=== PATIENT | female | born 1990 | race Caucasian/White ===

== ENCOUNTER 2016-04-02 12:11 | Emergency (ER) | payer SELFPAY ==
[2016-04-02 13:14] LABS: #Basophils 0.1 thou/uL (0.0-0.2); #Eosinphils 0.1 thou/uL (0.0-0.7); #Lymphocytes 2.1 thou/uL (1.20-3.40); #Monocytes 0.5 thou/uL (0.11-0.59); #Neutrophils 2.7 thou/uL (1.40-6.50); %Basophils 1.8 % (0.0-1.0); %Eosinophils 2.6 % (0.0-10.0); %Lymphocytes 37.7 % (21.0-51.0); %Monocytes 9.7 % (0.0-10.0); Hematocrit 43.3 % (36.0-47.0); Mean Platelet Volume 6.3 fL (7.4-10.4); Red Blood Cell (RBC) Count 5.13 mill/uL (4.20-5.40); White Blood Cell (WBC) Count 5.6 thou/uL (4.8-10.8)
--- NOTE | 2016-04-02 13:16 | RAD ---
PORTABLE CHEST: Date: 04/02/16 HISTORY: Chest pain. FINDINGS: Lungs are clear. Heart and mediastinum appear normal. IMPRESSION: No acute chest finding. POS: [facility]
[2016-04-02 13:32] LABS: Troponin I Less than 0.010 ng/mL (< 0.028)
[2016-04-02 13:33] LABS: ALT (SGPT) 11 U/L (0-55); AST (SGOT) 13 U/L (5-34); Alkaline Phosphatase 57 U/L (40-150); Anion Gap 14 mmol/L (10-20); BUN (Urea Nitrogen) 9 mg/dL (7.0-18.7); Bilirubin, Total 0.6 mg/dL (0.2-1.2); CK (CPK) 61 U/L (29-168); Calc. Creatinine Clearance 0 mL/min (70-130); Calcium 8.8 mg/dL (7.8-10.44); Carbon Dioxide 24 mmol/L (22-29); Chloride 108 mmol/L (98-107); Estimated GFR-MDRD 69; Globulin 2.7 g/dL (2.4-3.5); Protein, Total 6.7 g/dL (6.0-8.3)
--- NOTE | 2016-04-02 13:47 | ERRECORD ---
[facility] EMERGENCY RECORD HPI PALPITATIONS (12:41 JL) CHIEF COMPLAINT: Patient presents for evaluation of palpitations, Patient presents for evaluation of weakness, Patient presents for evaluation of Pt with a long history of anxiety but usually intermittent episodes. Now with 1-2 weeks of constant chest 'congestion or pressure' and intermittent SOB. Also with intermittent but worsening episodes of 'my chest feels funny' and 'I can feel my heart beating very fast in different parts of my chest'. Associated with trembling and 'weak all over'. Dry mouth constantly. Pt with increased stress in her life including family illness, family stress, money stress and work stress. HISTORIAN: History provided by patient. LOCATION: Symptoms are generalized. QUALITY: Pain is dull in nature. TIME COURSE: Patient unable to describe onset of symptoms, Symptoms are worsening, pressure is constant. ASSOCIATED WITH: Associated with anxiety, Associated with chest pain, intermittent, No associated chills, Associated with dizziness, intermittent, Associated with headache, intermittent, Associated with shortness of breath, intermittent, Associated with stress. EXACERBATED BY: Patient's condition exacerbated by stress. RELIEVED BY: Patient's condition relieved by nothing. ROS (12:45 JL) CONSTITUTIONAL: Historian denies chills, denies fever. EYES: Historian denies eye pain, denies eye redness, denies eye discharge. ENT: Historian denies rhinorrhea, denies sore throat. dry mouth. CARDIOVASCULAR: Historian reports chest pain, substernal, Historian reports palpitations. RESPIRATORY: Historian denies cough, reports shortness of breath, denies sputum. GI: Historian denies abdominal pain, denies diarrhea. chronic daily nausea and vomiting since her gastric sleeve years ago, unchanged. GENITOURINARY FEMALE: Historian denies dysuria, denies frequency, denies hematuria. MUSCULOSKELETAL: Historian denies back pain. NEUROLOGIC: Historian reports dizziness, reports headache, denies paralysis, denies paresthesias, denies sensory changes. comes and goes. PSYCHIATRIC: Historian reports anxiety. PAST MEDICAL HISTORY MEDICAL HISTORY: Past medical history includes gastrointestinal disease, gastroesophageal reflux &a-1R&a+25V*p+0X*b8685R*c202B*c15G*c2P*p-0X&a-25V&a+1R Name: Rosalie Zuñiga: 1990 F26 MedRec: [id number] AcctNum: [id number] Prepared: SatApr 02, 2016 13:56 by Interface Page [address] [facility] EMERGENCY RECORD disease, Past medical history includes gynecologic history, polycystic ovary disease. (12:24 MSPE) FEMALE SURGICAL HISTORY: gastric sleeve. (12:24 MSPE) PSYCHIATRIC HISTORY: Psychiatric history includes, anxiety. (12:24 MSPE) SOCIAL HISTORY: Patient drinks socially, rarely, Patient denies drug use, Patient has no smoking history. (12:24 MSPE) NOTES: Nursing records reviewed, Agree with nursing records. (12:47 JLOY) KNOWN ALLERGIES No Known Drug Allergies CURRENT MEDICATIONS (12:22 MSPE) None VITAL SIGNS VITAL SIGNS: BP: 141/83, Pulse: 95, Resp: 20, Temp: 98.1 (Oral), Pain: 5, O2 sat: 100 on Room Air, Time: 04/02/2016 12:20. (12:20 MSPE) BP: 120/58, Pulse: 86, Resp: 13, O2 sat: 99 on RA, Time: 04/02/2016 13:00. (13:00 MSPE) BP: 124/64, Pulse: 75, Resp: 13, O2 sat: 99 on Room Air, Time: 04/02/2016 13:30. (13:30 MSPE) PHYSICAL EXAM (12:46 JLOY) CONSTITUTIONAL: Vital signs reviewed, Patient appears non toxic, Patient alert and oriented to person, place and time. EYES: Eye exam included findings of eyelids normal to inspection, Pupils equally round and reactive to light, Conjunctiva normal. ENT: Pharynx exam normal, Uvula exam normal, Tonsil exam normal, Mouth exam normal, mucous membranes moist. NECK: Neck exam included findings of normal range of motion, Trachea midline. RESPIRATORY CHEST: Respiratory exam included findings of no respiratory distress, Breath sounds clear, No wheezing, No rales, No rhonchi, Chest exam included findings of chest movement symmetrical. CARDIOVASCULAR: Cardiovascular exam included findings of heart rate regular rate and rhythm, Heart sounds normal. ABDOMEN FEMALE: Abdominal exam included findings of abdomen nontender, Bowel sounds normal. BACK: Back exam included findings of normal inspection. UPPER EXTREMITY: Upper extremity exam included findings of inspection normal. LOWER EXTREMITY: Lower extremity exam included findings of inspection normal, no edema, no calf tenderness. NEURO: [place] coma scale 15, Neuro exam findings include patient oriented to person, place and time, Speech normal. SKIN: Skin exam included findings of skin warm, dry, and normal in color, no rash. PSYCHIATRIC: Affect, anxious. &a-1R&a+25V*p+0X*j4527S*c202B*c15G*c2P*p-0X&a-25V&a+1R Name: Rosalie Zuñiga : 1990 F26 MedRec: [id number] AcctNum: [id number] Prepared: SatApr 02, 2016 13:56 by Interface Page [address] [facility] EMERGENCY RECORD PROBLEM LIST No recorded problems DIAGNOSIS (13:40 AMARA) FINAL: PRIMARY: Anxiety. PRESCRIPTION No recorded prescriptions DISPOSITION PATIENT: Disposition Type: Discharge, Disposition: *Discharge Home. (13:40 AMARA) Patient left the department. (13:50 MSPE) Silverman: AMARA=MD David, Jovanny MSPE=MARCE Pelletier, Tracey &a-1R&a+25V*p+0X*[id number]*c202B*c15G*c2P*p-0X&a-25V&a+1R Name: Rosalie Zuñiga : 1990 F26 MedRec: [id number] AcctNum: [id number] Prepared: SatApr 02, 2016 13:56 by Interface Page 3 of 3 pMD MTDD
--- NOTE | 2016-04-02 13:51 | PICIS ---
[facility] EMERGENCY RECORD TRIAGE (SatApr 02, 2016 12:22 MSPE) TRIAGE NOTES: "heart feels weird"; palpitations,HUMPHREY, feels weak; onset one week ago. "getting worse". (SatApr 02, 2016 12:22 MSPE) PATIENT: NAME: Rosalie Zuñiga, AGE: 26, GENDER: female, : Sat 1990, TIME OF GREET: SatApr 02, 2016 12:13, PREFERRED LANGUAGE: Guyanese, ETHNICITY: Not or , ECODE BILLING MAP: [facility] ER, SSN: [id number], Zip Code: [address], KG WEIGHT: 106.59, PHONE: , , , PERSON ID: [id number], PCP: none. (SatApr 02, 2016 12:22 MSPE) COMPLAINT: DIFFICULTY BREATHING/CHEST PAIN/RAPID HEARTBEAT. (SatApr 02, 2016 12:22 MSPE) ADMISSION: URGENCY: 3 Urgent, ADMISSION SOURCE: Home, TRANSPORT: CAR, BED: ER -04. (SatApr 02, 2016 12:22 MSPE) IMMUNIZATIONS: Flu vaccine not up to date, Tetanus immunization up to date, Pneumococcal vaccine not up to date. (12:24 MSPE) TRIAGE SCREENING: Patient denies suicidal ideation, Patient denies presence of domestic violence. (12:24 MSPE) LMP: Last menstrual period: 03/19/2016. (12:24 MSPE) TREATMENTS IN PROGRESS: Treatments given Prehospital: none. (12:24 MSPE) PROVIDERS: TRIAGE NURSE: Tracey Pelletier RN. (SatApr 02, 2016 12:22 MSPE) VITAL SIGNS: BP 141/83, Pulse 95, Resp 20, Temp 98.1, (Oral), Pain 5, O2 Sat 100, on Room Air, Time 04/02/2016 12:20. (12:20 MSPE) PREVIOUS VISIT ALLERGIES: No Known Drug Allergies. (SatApr 02, 2016 12:22 MSPE) No Known Drug Allergies. (12:24 MSPE) KNOWN ALLERGIES No Known Drug Allergies CURRENT MEDICATIONS (12:22 MSPE) None VITAL SIGNS VITAL SIGNS: BP: 141/83, Pulse: 95, Resp: 20, Temp: 98.1 (Oral), Pain: 5, O2 sat: 100 on Room Air, Time: 04/02/2016 12:20. (12:20 MSPE) BP: 120/58, Pulse: 86, Resp: 13, O2 sat: 99 on RA, Time: 04/02/2016 13:00. (13:00 MSPE) BP: 124/64, Pulse: 75, Resp: 13, O2 sat: 99 on Room Air, Time: 04/02/2016 13:30. (13:30 MSPE) NURSING ASSESSMENT: RESPIRATORY /CHEST (12:33 MSPE) CONSTITUTIONAL: Patient arrives ambulatory, Gait steady, History obtained from patient, Patient appears, anxious, Patient cooperative, Patient alert, Oriented to person, place and time, Skin warm, Skin dry, Skin normal in color. &a-1R&a+25V*p+0X*i7984I*c202B*c15G*c2P*p-0X&a-25V&a+1R Name: Rosalie Zuñiga : 1990 F26 MedRec: [id number] AcctNum: [id number] Prepared: SatApr 02, 2016 14:02 by Interface Page 1 of 7 pMD [facility] EMERGENCY RECORD PAIN: pressure pain, stabbing pain, upper chest, pt also c/o HUMPHREY. RESPIRATORY/CHEST: Breath sounds clear, Respiratory assessment findings include respiratory effort easy, Respirations regular, Conversing normally, Notes: sts chest feels congested; denies cough or fever. ENT: Associated with headache, Notes: denies nasal congestion. Sts mouth feels dry. NOTES: Notes: Pt reports having hx of anxiety; reports "having a lot going on", but has never had pain in her chest before today. Placed on ramp agent, BP and pulse ox. Monitor shows NSR. NURSING PROCEDURE: DISCHARGE NOTE (13:48 MSPE) DISCHARGE: Patient discharged to home, ambulating without assistance, Summary of Care printed/ provided, Discharge instructions given to patient, Simple or moderate discharge teaching performed, Above person(s) verbalized understanding of discharge instructions and follow-up care, Patient treated and evaluated by physician. BELONGINGS: Belongings remain with patient. NURSING PROCEDURE: EKG CHART (12:42 MSPE) EKG: EKG indicated for complaint of palpitations, 12 lead EKG performed on the left chest. FOLLOW-UP: After procedure, EKG for interpretation given to Dr. Hernandez. NURSING PROCEDURE: IV IV SITE 1: IV therapy indicated for hydration, IV therapy indicated for medication administration, IV established, to the left antecubital, using a 20 gauge catheter, in one attempt, IV site prepped with Chloraprep, Saline lock established, Flushed with normal saline (mls): 10, Labs drawn at time of placement, labeled in the presence of the patient and sent to lab. (12:59 MSPE) FOLLOW-UP SITE 1: After procedure, 2x2 dressing applied, IV discontinued, due to patient being discharged, catheter intact. (13:45 MSPE) NURSING PROCEDURE: NURSE NOTES NURSES NOTES: Patient in no apparent distress, Pillow given to patient, Ice chips given to patient. (13:00 MSPE) Patient is improving, Patient in no apparent distress, Patient states decreased pain, Patient resting quietly, Patient is awaiting disposition. (13:40 MSPE) VITAL SIGNS: BP: 120, / 58, Pulse: 86, Resp: 13, O2 sat: 99, on: RA. (13:00 MSPE) ORDER DETAILS Order Name: [facility], Status: Done, Time: 12:36 04/02/2016, &a-1R&a+25V*p+0X*h8054W*c202B*c15G*c2P*p-0X&a-25V&a+1R Name: Rosalie Zuñiga : 1990 F26 MedRec: [id number] AcctNum: [id number] Prepared: SatApr 02, 2016 14:02 by Interface Page 2 of 7 D [facility] EMERGENCY RECORD User: CATY, - Ordered for: MD Hernandez Joshua, - Entered by: MARCE Pelletier Marilyn - SatApr 02, 2016 12:36, - Quantity: 1, Order Name: Cardiac Profile w/CKMB & Troponin - I, Status: Active, Time: 12:37 04/02/2016, User: AMARA, - Ordered for: MD Hernandez Joshua, - Entered by: MD Hernandez Joshua - Mon Apr 02, 2016 12:37, - Quantity: 1, Order Name: CBC with Differential, Status: Active, Time: 12:37 04/02/2016, User: AMARA, - Ordered for: MD Hernandez Joshua, - Entered by: MD Hernandez Joshua - Mon Apr 02, 2016 12:37, - Quantity: 1, Order Name: CK (CPK), Status: Active, Time: 12:37 04/02/2016, User: AMARA, - Ordered for: MD Hernandez Joshua, - Entered by: MD Hernandez Joshua - Mon Apr 02, 2016 12:37, - Quantity: 1, Order Name: Comprehensive Metabolic Panel, Status: Active, Time: 12:37 04/02/2016, User: AMARA, - Ordered for: MD Hernandez Joshua, - Entered by: MD Hernandez Joshua - Mon Apr 02, 2016 12:37, - Quantity: 1, Order Name: EKG 12 Lead in Emergency Room, Status: Active, Time: 12:37 04/02/2016, User: AMARA, - Ordered for: MD Hernandez Joshua, - Entered by: MD Hernandez Joshua - Edmundo Apr 02, 2016 12:37, - Quantity: 1, Order Name: ERRT Pulse Oximeter ER, Status: Active, Time: 12:36 04/02/2016, User: CATY, - Ordered for: MD Hernandez Joshua, - Entered by: MARCE Pelletier [facility] Edmundo Apr 02, 2016 12:36, - Quantity: 1, Order Name: XR Chest 1 View Portable, Status: Active, Time: 12:37 04/02/2016, User: AMARA, - Ordered for: MD Hernandez Joshua, - Entered by: MD Hernandez Joshua - Mon Apr 02, 2016 12:37, - Quantity: 1. HPI PALPITATIONS (12:41 JLOY) CHIEF COMPLAINT: Patient presents for evaluation of palpitations, Patient presents for evaluation of weakness, Patient presents for evaluation of Pt with a long history of anxiety but usually intermittent episodes. Now with 1-2 weeks of constant chest 'congestion or pressure' and intermittent SOB. Also with intermittent but worsening episodes of 'my chest feels funny' and 'I can feel my heart beating very fast in different parts of my chest'. Associated with trembling and 'weak all over'. Dry mouth constantly. Pt with increased stress in her life including &a-1R&a+25V*p+0X*e2204K*c202B*c15G*c2P*p-0X&a-25V&a+1R Name: Rosalie Zuñiga : 1990 F26 MedRec: [id number] AcctNum: [id number] Prepared: SatApr 02, 2016 14:02 by Interface Page 3 of 7 pMD [facility] EMERGENCY RECORD family illness, family stress, money stress and work stress. HISTORIAN: History provided by patient. LOCATION: Symptoms are generalized. QUALITY: Pain is dull in nature. TIME COURSE: Patient unable to describe onset of symptoms, Symptoms are worsening, pressure is constant. ASSOCIATED WITH: Associated with anxiety, Associated with chest pain, intermittent, No associated chills, Associated with dizziness, intermittent, Associated with headache, intermittent, Associated with shortness of breath, intermittent, Associated with stress. EXACERBATED BY: Patient's condition exacerbated by stress. RELIEVED BY: Patient's condition relieved by nothing. ROS (12:45 JLOY) CONSTITUTIONAL: Historian denies chills, denies fever. EYES: Historian denies eye pain, denies eye redness, denies eye discharge. ENT: Historian denies rhinorrhea, denies sore throat. dry mouth. CARDIOVASCULAR: Historian reports chest pain, substernal, Historian reports palpitations. RESPIRATORY: Historian denies cough, reports shortness of breath, denies sputum. GI: Historian denies abdominal pain, denies diarrhea. chronic daily nausea and vomiting since her gastric sleeve years ago, unchanged. GENITOURINARY FEMALE: Historian denies dysuria, denies frequency, denies hematuria. MUSCULOSKELETAL: Historian denies back pain. NEUROLOGIC: Historian reports dizziness, reports headache, denies paralysis, denies paresthesias, denies sensory changes. comes and goes. PSYCHIATRIC: Historian reports anxiety. PAST MEDICAL HISTORY MEDICAL HISTORY: Past medical history includes gastrointestinal disease, gastroesophageal reflux disease, Past medical history includes gynecologic history, polycystic ovary disease. (12:24 MSPE) FEMALE SURGICAL HISTORY: gastric sleeve. (12:24 MSPE) PSYCHIATRIC HISTORY: Psychiatric history includes, anxiety. (12:24 MSPE) SOCIAL HISTORY: Patient drinks socially, rarely, Patient denies drug use, Patient has no smoking history. (12:24 MSPE) NOTES: Nursing records reviewed, Agree with nursing records. (12:47 JLOY) &a-1R&a+25V*p+0X*a3367W*c202B*c15G*c2P*p-0X&a-25V&a+1R Name: Rosalie Zuñiga : 1990 F26 MedRec: [id number] AcctNum: [id number] Prepared: SatApr 02, 2016 14:02 by Interface Page 4 of 7 pMD [facility] EMERGENCY RECORD PHYSICAL EXAM (12:46 JLOY) CONSTITUTIONAL: Vital signs reviewed, Patient appears non toxic, Patient alert and oriented to person, place and time. EYES: Eye exam included findings of eyelids normal to inspection, Pupils equally round and reactive to light, Conjunctiva normal. ENT: Pharynx exam normal, Uvula exam normal, Tonsil exam normal, Mouth exam normal, mucous membranes moist. NECK: Neck exam included findings of normal range of motion, Trachea midline. RESPIRATORY CHEST: Respiratory exam included findings of no respiratory distress, Breath sounds clear, No wheezing, No rales, No rhonchi, Chest exam included findings of chest movement symmetrical. CARDIOVASCULAR: Cardiovascular exam included findings of heart rate regular rate and rhythm, Heart sounds normal. ABDOMEN FEMALE: Abdominal exam included findings of abdomen nontender, Bowel sounds normal. BACK: Back exam included findings of normal inspection. UPPER EXTREMITY: Upper extremity exam included findings of inspection normal. LOWER EXTREMITY: Lower extremity exam included findings of inspection normal, no edema, no calf tenderness. NEURO: [place] coma scale 15, Neuro exam findings include patient oriented to person, place and time, Speech normal. SKIN: Skin exam included findings of skin warm, dry, and normal in color, no rash. PSYCHIATRIC: Affect, anxious. EVENTS TRANSFER: Triage to Emergency Emergency Room -04. (SatApr 02, 2016 12:22 MSPE) Removed from Emergency Emergency Room -04. (13:50 MSPE) PROBLEM LIST No recorded problems DIAGNOSIS (13:40 JLOY) FINAL: PRIMARY: Anxiety. DISPOSITION PATIENT: Disposition Type: Discharge, Disposition: *Discharge Home. (13:40 JLOY) Patient left the department. (13:50 MSPE) INSTRUCTION (13:40 JLOY) DISCHARGE: ANXIETY REACTION. FOLLOWUP: Follow up with Primary Care Physician in 7-10 days. PRESCRIPTION No recorded prescriptions &a-1R&a+25V*p+0X*i7023X*c202B*c15G*c2P*p-0X&a-25V&a+1R Name: Rosalie Zuñiga : 1990 F26 MedRec: [id number] AcctNum: [id number] Prepared: SatApr 02, 2016 14:02 by Interface Page 5 of 7 pMD [facility] EMERGENCY RECORD IMAGING *EKG: Image captured from scanner. (13:21 MSPE) *DISCHARGE INSTRUCTIONS RECEIPT: Image captured from scanner. (13:51 MSPE) *SUPPLY CHARGE SHEET: Image captured from scanner. (13:51 MSPE) ADMIN (13:40 JLOY) DIGITAL SIGNATURE: MD Hernandez Joshua. RESULTS (13:36 JLOY) RADIOLOGY: XR Chest 1 View Portable Observe DT: SatApr 02, 2016 12:39, CXRP PORTABLE CHEST: Date: 04/02/16 HISTORY: Chest pain. FINDINGS: Lungs are clear. Heart and mediastinum appear normal. IMPRESSION: No acute chest finding. POS: [facility] . LABORATORY: CK (CPK) Collection DT: SatApr 02, 2016 13:02, CK (CPK) 61 U/L, Range (29-168). Comprehensive Metabolic Panel Collection DT: SatApr 02, 2016 13:02, Sodium 142 mmol/L, Range (136-145), Potassium 3.9 mmol/L, Range (3.5-5.1), *Chloride 108 - H mmol/L, Range (98-107), Carbon Dioxide 24 mmol/L, Range (22-29), Anion Gap 14 mmol/L, Range (10-20), BUN (Urea Nitrogen) 9 mg/dL, Range (7.0-18.7), Creatinine 0.96 mg/dL, Range (0.6-1.1), Estimated GFR-MDRD 69 , Reference Range for Estimated GFR: Greater than 90, mL/min/1.73 m2 NOTE: The MDRD equation has not been validated for use, with the elderly (over 70 years of age), women, patients with, serious comorbid condition or persons with extremes of body size, muscle, mass, or nutritional status. , Glucose 82 mg/dL, Range (70-105), Calcium 8.8 mg/dL, Range (7.8-10.44), Bilirubin, Total 0.6 mg/dL, Range (0.2-1.2), &a-1R&a+25V*p+0X*h8902L*c202B*c15G*c2P*p-0X&a-25V&a+1R Name: Rosalie Zuñiga : 1990 F26 MedRec: [id number] AcctNum: [id number] Prepared: SatApr 02, 2016 14:02 by Interface Page 6 of 7 pMD [facility] EMERGENCY RECORD Protein, Total 6.7 g/dL, Range (6.0-8.3), NOTE: Plasma values are generally 0.3 to 0.5 g/dL higher than serum values, due to the presence of fibrinogen. , Albumin 4.0 g/dL, Range (3.5-5.0), Globulin 2.7 g/dL, Range (2.4-3.5), Alb/Glob Ratio 1.5 g/dL, Range (1.2-2.2), Alkaline Phosphatase 57 U/L, Range (40-150), AST (SGOT) 13 U/L, Range (5-34), ALT (SGPT) 11 U/L, Range (0-55). Cardiac Profile w/CKMB & TropI Collection DT: SatApr 02, 2016 13:02, CKMB 0.6 ng/mL, Range (0-6.6), Troponin I Less than 0.010 ng/mL, Range (< 0.028), Reference Range , 0.00 - 0.028 ng/mL Negative 0.029 - 0.29 ng/mL , Indeterminate Greater or Equal to 0.3 ng/mL Strongly suggests MD , . CBC with Differential Collection DT: SatApr 02, 2016 13:02, White Blood Cell (WBC) Count 5.6 thou/uL, Range (4.8-10.8), Red Blood Cell (RBC) Count 5.13 mill/uL, Range (4.20-5.40), Hemoglobin 14.4 g/dL, Range (12.0-16.0), Hematocrit 43.3 %, Range (36.0-47.0), Mean Corpuscular Volume 84.3 fl, Range (81.0-99.0), Mean Corpuscular Hemoglobin 28.0 pg, Range (27.0-31.0), Mean Corpuscular HGB CONC 33.2 g/dL, Range (32.0-36.0), *RBC Distribution Width 11.3 - L %, Range (11.5-14.5), Platelet Count 277 thou/uL, Range (130-400), *Mean Platelet Volume 6.3 - L fL, Range (7.4-10.4), %Neutrophils 48.2 %, Range (42.0-75.0), %Lymphocytes 37.7 %, Range (21.0-51.0), %Monocytes 9.7 %, Range (0.0-10.0), %Eosinophils 2.6 %, Range (0.0-10.0), *%Basophils 1.8 - H %, Range (0.0-1.0), #Neutrophils 2.7 thou/uL, Range (1.40-6.50), #Lymphocytes 2.1 thou/uL, Range (1.20-3.40), #Monocytes 0.5 thou/uL, Range (0.11-0.59), #Eosinphils 0.1 thou/uL, Range (0.0-0.7), #Basophils 0.1 thou/uL, Range (0.0-0.2). Silverman: AMARA=MD David, Jovanny PETERSE=MARCE Pelletier, Tracey &a-1R&a+25V*p+0X*o5499O*c202B*c15G*c2P*p-0X&a-25V&a+1R Name: Rosalie Zuñiga : 1990 F26 MedRec: [id number] AcctNum: [id number] Prepared: SatApr 02, 2016 14:02 by Interface Page 7 of 7 pMD MTDD
== END 2016-04-02 13:48 | disposition home or self-care (01) ==
LOC: NAV ERS 12:11
DX: F41.9 Anxiety disorder, unspecified (principal); K21.9 Gastro-esophageal reflux disease without esophagitis
CPT/HCPCS: 36415; 71010; 80053; 82553; 84484; 85025; 93005; 94760

== ENCOUNTER 2016-08-16 17:22 | Emergency (ER) | payer SELFPAY ==
[2016-08-16 17:43] LABS: Pregnancy Test - Urine (BHCG) POSITIVE (NEGATIVE); Pregu Control Background? CLEAR/WHITE (CLR/WHITE); Pregu Control Bar Appear? YES (CONTROL BAR); Specific Gravity 1.017 (1.002-1.036)
[2016-08-16 17:52] LABS: Bilirubin Negative (Negative); Blood, Urine Negative (Negative); Clarity Clear (Clear); Glucose, Urine (Dipstick) Negative (Negative); Leukocyte Negative (Negative); Nitrite Negative (Negative); Protein, Urine (Dipstick) Negative (Neg-Trace); Specific Gravity, Urine 1.015 (1.005-1.030); Urobilinogen 0.2 mg/dL (0.2-1.0)
[2016-08-16 18:01] LABS: #Basophils 0.1 thou/uL (0.0-0.2); #Eosinphils 0.5 thou/uL (0.0-0.7); #Lymphocytes 2.8 thou/uL (1.20-3.40); #Monocytes 0.6 thou/uL (0.11-0.59); #Neutrophils 3.6 thou/uL (1.40-6.50); %Basophils 1.6 % (0.0-1.0); %Eosinophils 6.4 % (0.0-10.0); %Lymphocytes 36.9 % (21.0-51.0); %Monocytes 7.6 % (0.0-10.0); %Neutrophils 47.5 % (42.0-75.0); Hemoglobin 13.3 g/dL (12.0-16.0); Mean Corpuscular HGB CONC 33.9 g/dL (32.0-36.0); Mean Corpuscular Hemoglobin 28.5 pg (27.0-31.0); Mean Corpuscular Volume 84.2 fl (81.0-99.0); Mean Platelet Volume 6.3 fL (7.4-10.4); Platelet Count 235 thou/uL (130-400); RBC Distribution Width 11.3 % (11.5-14.5); Red Blood Cell (RBC) Count 4.66 mill/uL (4.20-5.40); White Blood Cell (WBC) Count 7.6 thou/uL (4.8-10.8)
[2016-08-16 18:17] LABS: Anion Gap 14 mmol/L (10-20); BUN (Urea Nitrogen) 12 mg/dL (7.0-18.7); Calc. Creatinine Clearance 0 mL/min (70-130); Calcium 8.8 mg/dL (7.8-10.44); Carbon Dioxide 20 mmol/L (22-29); Chloride 108 mmol/L (98-107); Estimated GFR-MDRD 85; Glucose 98 mg/dL (70-105); Potassium 4.1 mmol/L (3.5-5.1); Sodium 138 mmol/L (136-145)
== END 2016-08-16 18:52 | disposition home or self-care (01) ==
LOC: NAV ERS 17:22
DX: O99.89 Other specified diseases and conditions complicating pregnancy, childbirth and the puerperium (principal); R42 Dizziness and giddiness; O99.341 Other mental disorders complicating pregnancy, first trimester; F41.9 Anxiety disorder, unspecified
CPT/HCPCS: 36415; 80048; 81003; 81025; 84702; 85025; 99284

== ENCOUNTER 2016-12-11 12:08 | Emergency (ER) | payer MEDICAID, SELFPAY ==
[2016-12-11] MEDS ORDERED: Sodium Chloride 0.9% 1,000 ML ONE (12:26)
[2016-12-11 12:41] LABS: Bilirubin Negative (Negative); Blood, Urine Large (Negative); Clarity Slightly Cloudy (Clear); Glucose, Urine (Dipstick) Negative (Negative); Leukocyte Negative (Negative); Nitrite Negative (Negative); Protein, Urine (Dipstick) Trace mg/dL (Neg-Trace); Specific Gravity, Urine 1.025 (1.005-1.030); Urobilinogen 0.2 mg/dL (0.2-1.0)
[2016-12-11 12:50] LABS: Bacteria/HPF 1+ HPF (None Seen); RBC/HPF GREATER THAN 50-TNTC HPF (0-3); Squamous Epithelial 0-3 HPF (0-3); WBC/HPF 0-3 HPF (0-3)
[2016-12-11] MEDS ORDERED: Ondansetron HCl/PF 4 MG/2 ML Vial ONE (12:53)
[2016-12-11 12:58] LABS: #Basophils 0.1 thou/uL (0.0-0.2); #Eosinphils 0.3 thou/uL (0.0-0.7); #Lymphocytes 2.1 thou/uL (1.20-3.40); #Monocytes 0.5 thou/uL (0.11-0.59); #Neutrophils 6.2 thou/uL (1.40-6.50); %Basophils 0.7 % (0.0-1.0); %Eosinophils 3.7 % (0.0-10.0); %Lymphocytes 22.9 % (21.0-51.0); %Neutrophils 67.8 % (42.0-75.0); Hemoglobin 12.6 g/dL (12.0-16.0); Mean Corpuscular HGB CONC 35.4 g/dL (32.0-36.0); Mean Platelet Volume 6.4 fL (7.4-10.4); Platelet Count 209 thou/uL (130-400); RBC Distribution Width 11.6 % (11.5-14.5); Red Blood Cell (RBC) Count 4.18 mill/uL (4.20-5.40); White Blood Cell (WBC) Count 9.1 thou/uL (4.8-10.8)
[2016-12-11 13:04] LABS: ALT (SGPT) 13 U/L (8-55); AST (SGOT) 13 U/L (5-34); Albumin 3.5 g/dL (3.5-5.0); Alkaline Phosphatase 54 U/L (40-150); Anion Gap 15 mmol/L (10-20); BUN (Urea Nitrogen) 7 mg/dL (7.0-18.7); Bilirubin, Total 0.4 mg/dL (0.2-1.2); Calc. Creatinine Clearance 0 mL/min (70-130); Calcium 8.8 mg/dL (7.8-10.44); Carbon Dioxide 17 mmol/L (22-29); Chloride 109 mmol/L (98-107); Estimated GFR-MDRD Greater than 90; Globulin 2.6 g/dL (2.4-3.5); Glucose 103 mg/dL (70-105); Lipase 35 U/L (8-78); Potassium 3.8 mmol/L (3.5-5.1); Protein, Total 6.1 g/dL (6.0-8.3); Sodium 137 mmol/L (136-145)
== END 2016-12-11 15:36 | disposition short-term general hospital (02) ==
LOC: NAV ERS 12:08
DX: O99.89 Other specified diseases and conditions complicating pregnancy, childbirth and the puerperium (principal); R10.30 Lower abdominal pain, unspecified; O99.612 Diseases of the digestive system complicating pregnancy, second trimester; K21.9 Gastro-esophageal reflux disease without esophagitis; O99.212 Obesity complicating pregnancy, second trimester; E66.9 Obesity, unspecified; O99.342 Other mental disorders complicating pregnancy, second trimester; F41.9 Anxiety disorder, unspecified; Z3A.23 23 weeks gestation of pregnancy
CPT/HCPCS: 80053; 81003; 81015; 82150; 83690; 85025; 96361; 96374; J2405; J7050

== ENCOUNTER 2017-04-29 19:11 | Emergency (ER) | payer MEDICAID | END 2017-04-29 19:46 | disposition home or self-care (01) | LOC: NAV ERS 19:11 | DX: O99.63 Diseases of the digestive system complicating the puerperium (principal); K04.7 Periapical abscess without sinus; K21.9 Gastro-esophageal reflux disease without esophagitis; O99.345 Other mental disorders complicating the puerperium; F41.9 Anxiety disorder, unspecified | CPT/HCPCS: 99282 ==

== ENCOUNTER 2017-08-08 10:02 | Emergency (ER) | payer MEDICAID ==
[2017-08-08 10:25] LABS: Bilirubin Negative (Negative); Blood, Urine Large (Negative); Clarity Clear (Clear); Glucose, Urine (Dipstick) Negative (Negative); Leukocyte Small (Negative); Nitrite Negative (Negative); Protein, Urine (Dipstick) Trace mg/dL (Neg-Trace); Specific Gravity, Urine 1.015 (1.005-1.030); Urobilinogen 0.2 mg/dL (0.2-1.0); pH, Urine 7.5 (5.0-9.0)
[2017-08-08 10:49] LABS: RBC/HPF GREATER THAN 50-TNTC HPF (0-3)
[2017-08-08 10:50] LABS: Bacteria/HPF 1+ HPF (None Seen); Other Microscopic Description NO
[2017-08-08 10:51] LABS: Pregnancy Test - Urine (BHCG) Negative (Negative); Pregu Control Background? CLEAR/WHITE (CLR/WHITE); Pregu Control Bar Appear? YES (CONTROL BAR); Specific Gravity 1.015 (1.002-1.036)
== END 2017-08-08 11:08 | disposition home or self-care (01) ==
LOC: NAV ERS 10:02
DX: R31.9 Hematuria, unspecified (principal); K21.9 Gastro-esophageal reflux disease without esophagitis; F41.9 Anxiety disorder, unspecified
CPT/HCPCS: 81003; 81015; 81025; 87086; 99283

== ENCOUNTER 2018-08-18 14:53 | Inpatient (IN) | payer MEDICAID, SELFPAY ==
[2018-08-18] MEDS ORDERED: Acetaminophen 500 MG TAB ONE (15:12)
[2018-08-18 15:41] LABS: Pregnancy Test - Urine (BHCG) Negative (Negative); Pregu Control Background? CLEAR/WHITE (CLR/WHITE); Pregu Control Bar Appear? YES (CONTROL BAR); Specific Gravity 1.022 (1.002-1.036)
[2018-08-18] MEDS ORDERED: Sodium Chloride 0.9% 1,000 ML ONE ×3 (16:10→17:38)
[2018-08-18 16:12] LABS: ALT (SGPT) 17 U/L (8-55); AST (SGOT) 21 U/L (5-34); Albumin 3.7 g/dL (3.5-5.0); Alkaline Phosphatase 74 U/L (40-150); Anion Gap 14 mmol/L (10-20); BUN (Urea Nitrogen) 13 mg/dL (7.0-18.7); Bilirubin, Total 0.2 mg/dL (0.2-1.2); Calc. Creatinine Clearance 0 mL/min (70-130); Calcium 8.4 mg/dL (7.8-10.44); Carbon Dioxide 21 mmol/L (22-29); Chloride 108 mmol/L (98-107); Estimated GFR-MDRD 80; Globulin 2.8 g/dL (2.4-3.5); Glucose 100 mg/dL (70-105); Potassium 3.9 mmol/L (3.5-5.1); Protein, Total 6.5 g/dL (6.0-8.3); Sodium 139 mmol/L (136-145)
[2018-08-18 16:13] LABS: Bilirubin Negative (Negative); Blood, Urine Large (Negative); Clarity Clear (Clear); Glucose, Urine (Dipstick) Negative (Negative); Leukocyte Moderate (Negative); Nitrite Negative (Negative); Protein, Urine (Dipstick) 30 mg/dL (Neg-Trace); Urobilinogen 0.2 mg/dL (0.2-1.0); pH, Urine 5.5 (5.0-9.0)
[2018-08-18 16:17] LABS: #Basophils 0.1 thou/uL (0.0-0.2); #Eosinphils 0.1 thou/uL (0.0-0.7); #Lymphocytes 1.4 thou/uL (1.20-3.40); #Monocytes 0.7 thou/uL (0.11-0.59); #Neutrophils 3.5 thou/uL (1.40-6.50); %Basophils 1.2 % (0.0-1.0); %Eosinophils 0.9 % (0.0-10.0); %Lymphocytes 24.4 % (21.0-51.0); %Monocytes 11.6 % (0.0-10.0); %Neutrophils 61.9 % (42.0-75.0); Hemoglobin 10.2 g/dL (12.0-16.0); Mean Corpuscular HGB CONC 30.6 g/dL (32.0-36.0); Mean Corpuscular Hemoglobin 22.6 pg (27.0-31.0); Mean Platelet Volume 6.1 fL (7.4-10.4); Platelet Count 231 thou/uL (130-400); RBC Distribution Width 14.7 % (11.5-14.5); Red Blood Cell (RBC) Count 4.53 mill/uL (4.20-5.40); White Blood Cell (WBC) Count 5.6 thou/uL (4.8-10.8)
[2018-08-18 16:27] LABS: Bacteria/HPF 1+ HPF (None Seen); RBC/HPF GREATER THAN 50-TNTC HPF (0-3)
[2018-08-18] MEDS ORDERED: cefTRIAXone\\ROCEPHIN 2 GM VIAL ONE (16:46)
--- NOTE | 2018-08-18 16:46 | RAD ---
FRONTAL VIEW CHEST: INDICATIONS: Cough and fever. COMPARISON: 04/02/2016 FINDINGS: The lungs are clear. No effusion or pneumothorax. The cardiac silhouette is normal in size. IMPRESSION: No focal consolidation. POS: [facility]
[2018-08-18 17:02] LABS: Hypochromia SLIGHT = 6-15 cells (100X) (0-5/hpf); MDiff Complete? YES; Microcytosis SLIGHT = 6-15 cells (100X) (0-5/hpf); Platelet Morphology Comment Appears Adequate
[2018-08-18] MEDS ORDERED: Senokot S 8.6-50 MG TAB PO PRN (21:12)
[2018-08-18] MEDS ORDERED: Bisacodyl 5 MG TAB PO PRN (21:12)
[2018-08-18] MEDS ORDERED: Ondansetron ODT 4 MG TAB PO PRN (21:12)
[2018-08-18] MEDS ORDERED: Calcium Carbonate 500 MG ChewTAB PO PRN (21:12)
[2018-08-18] MEDS: Sodium Chloride 0.9% 1,000 ML IV SCH (22:32)
--- NOTE | 2018-08-19 04:47 | HP ---
HISTORY OF PRESENT ILLNESS: Ms. Zuñiga is a very pleasant 28-year-old white female, who presented to the emergency room with fever and chills for the last couple of days. She states she felt terrible and was very very achy. She states the gradual onset of symptoms started became worse and worse and she became very weak and had body aches. She has not felt any better, and so she came to the emergency room for evaluation. PAST MEDICAL HISTORY: The patient has polycystic ovarian syndrome. She also has a positive history of obesity and she states she may have some fibromyalgia. MEDICATIONS: The patient takes no medications. ALLERGIES: THE PATIENT HAS NO KNOWN MEDICAL ALLERGIES. FAMILY HISTORY: The patient's mother is 58 and has internal melanoma. The patient's father is 57, has hypertension, glaucoma. The patient has a brother and sister, both are healthy. PAST SURGICAL HISTORY: The patient had C-sections x2. The patient had a gastric sleeve in 2011. SOCIAL HISTORY: The patient denies alcohol or any drug use. 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 PHYSICAL EXAMINATION: VITAL SIGNS: Today reveal blood pressure 111/50, pulse 72 to 84, respirations 18 to 20, O2 saturation 98% to 100% on room air, and T-max 98.4, but it is 102 on arrival in the emergency room. GENERAL: This is a well-developed, well-nourished, very pleasant 28-year-old morbidly obese white female, in no apparent distress at this time. The patient states that she feels much better than when she came to the emergency room after getting some fluids and getting some medicines to knock her fever down. HEENT: Normocephalic and nontraumatic cranium. Pupils are equal, round, and reactive. Extraocular movements are intact. Nose and throat are slightly dry, but better than they were when she came to the ER. NECK: Supple without masses, nodes, or bruits. CHEST: Clear to auscultation. No rales. No rhonchi. No wheezes are heard. HEART: Regular rate and rhythm without murmurs, gallops, or rubs. ABDOMEN: Morbidly obese, soft, nontender without organomegaly. Normal bowel sounds are noted. BACK: No CVA tenderness is noted. The patient does have lower lumbar tenderness. : Deferred. EXTREMITIES: No clubbing, cyanosis, or edema LABORATORY DATA: Urinalysis revealed [id number] rbc's and wbc's. The patient has urine culture and sensitivities and blood culture and sensitivities done. The patient's white count was 5600 with hemoglobin of 10.2, hematocrit 33.5, and platelet count 231,000. She had 11.6 Monocytes. Chemistry reveals sodium 139, potassium 3.9, chloride 108, carbon dioxide 21 with a BUN of 13, creatinine 0.84, and sugar of 100. Lactic acid was 0.9. Liver enzymes were normal. ASSESSMENT: 1. Urinary tract infection, most likely sepsis. 2. Dehydration. 3. Fever and malaise. 4. Polycystic ovarian syndrome. 5. Generalized weakness. PLAN: 1. The patient was admitted to observation. The patient was given Rocephin. In the emergency room, we will continue on Rocephin. 2. She was given Rocephin 2 g at 1647 hours. 3. Continue IV rate at 75 mL/hour. 4. Repeat labs tomorrow morning including CBC comprehensive metabolic. 5. We will await culture and sensitivity reports. Job ID: [id number] [facility]
[2018-08-19 05:54] LABS: ALT (SGPT) 18 U/L (8-55); AST (SGOT) 22 U/L (5-34); Albumin 3.2 g/dL (3.5-5.0); Alkaline Phosphatase 60 U/L (40-150); Anion Gap 11 mmol/L (10-20); BUN (Urea Nitrogen) 11 mg/dL (7.0-18.7); Bilirubin, Total 0.2 mg/dL (0.2-1.2); Calc. Creatinine Clearance 200 mL/min (70-130); Carbon Dioxide 21 mmol/L (22-29); Chloride 114 mmol/L (98-107); Estimated GFR-MDRD Greater than 90; Globulin 2.4 g/dL (2.4-3.5); Glucose 92 mg/dL (70-105); Potassium 4.2 mmol/L (3.5-5.1); Protein, Total 5.6 g/dL (6.0-8.3); Sodium 142 mmol/L (136-145)
[2018-08-19 06:05] LABS: Anisocytosis SLIGHT = 6-15 cells (100X) (0-5/hpf); Band 16 % (5-11); Eosinophils 2 % (0-10); Hemoglobin 9.5 g/dL (12.0-16.0); Hypochromia SLIGHT = 6-15 cells (100X) (0-5/hpf); Lymphocytes 47 % (21-51); MDiff Complete? YES; Mean Corpuscular HGB CONC 30.3 g/dL (32.0-36.0); Mean Corpuscular Hemoglobin 22.5 pg (27.0-31.0); Mean Corpuscular Volume 74.2 fL (78.0-98.0); Mean Platelet Volume 6.5 fL (7.4-10.4); Metamyelocyte 1 % (0-0); Microcytosis SLIGHT = 6-15 cells (100X) (0-5/hpf); Monocytes 5 % (0-10); Neutrophil 26 % (42-75); Ovalocytes SLIGHT = 2-5 cells (100X) (0-1/hpf); Platelet Count 206 thou/uL (130-400); Platelet Morphology Comment Appears Adequate; RBC Distribution Width 14.7 % (11.5-14.5); Reactive Lymphocytes 1 % (0-10); Red Blood Cell (RBC) Count 4.24 mill/uL (4.20-5.40); White Blood Cell (WBC) Count 3.9 thou/uL (4.8-10.8)
--- NOTE | 2018-08-19 10:19 | PRG ---
DATE OF SERVICE: 08/19/2018 SUBJECTIVE: This is a well-developed, well-nourished, very pleasant 28-year-old white female, who had been sick with high fever and chills and dysuria for about 2 days. She came to the emergency room, where she was found to have urinary tract infection with sepsis. She was very dehydrated and got 2 L of fluid in the ER and a 3rd on the floor. She was started on Rocephin and states she started feeling much much better. This morning, she states she is urinating well, eating well and back to her normal. She has no complaints today. OBJECTIVE: VITAL SIGNS: This morning reveal blood pressure 90/54, pulse 69 to 77, respirations 18, O2 saturation 99% to 100% on room air, T-max 98.2. GENERAL: This is a well-developed, well-nourished, morbidly obese white female, in no apparent distress at this time. HEENT: Reveals normocephalic and nontraumatic cranium. Pupils are equal, round, and reactive. Extraocular movements are intact. Nose and throat are slightly dry, but much improved. NECK: Supple without masses, nodes, or bruits. CHEST: Clear to auscultation. No rales, rhonchi, wheezes, or cough are heard. HEART: Reveals a regular rate and rhythm without murmurs, gallops, or rubs. ABDOMEN: Morbidly obese, soft, nontender without organomegaly. Normal bowel sounds are noted in all 4 quadrants. BACK: Reveals still no CVA tenderness. GENITOURINARY: Deferred. EXTREMITIES: Reveal no clubbing, cyanosis, or edema. ASSESSMENT: 1. Sepsis with urinary tract infection. 2. Dehydration. 3. Fever and malaise. 4. Polycystic ovarian syndrome. 5. Generalized weakness. PLAN: 1. We will change IV to saline lock. 2. Continue Rocephin 2 g q.24 hours. 3. Labs this morning was improved. 4. Awaiting culture and sensitivity reports. 5. Hope to get the patient home tomorrow. Job ID: [id number]
[2018-08-19] MEDS: Sodium Chloride 0.9% 1,000 ML IV SCH (11:32)
[2018-08-19 11:46] VITALS: TEMP 98.1
[2018-08-19 15:03] VITALS: BMI 45.8
[2018-08-19 16:21] VITALS: BP 131/75
[2018-08-19] MEDS ORDERED: cefTRIAXone\\ROCEPHIN 2 GM in Sodium Chloride 0.9% 100 ML IVPB SCH (17:00)
== END 2018-08-19 16:20 | disposition left against medical advice (07) | DRG 872 ==
LOC: NAV ERS 14:53 → NAV ACUTE 18:00
PROVIDERS: ADMIT Family Medicine; ATTEND Family Medicine
DX: A41.9 Sepsis, unspecified organism (principal); N39.0 Urinary tract infection, site not specified; E28.2 Polycystic ovarian syndrome; E86.0 Dehydration; K21.9 Gastro-esophageal reflux disease without esophagitis; Z98.84 Bariatric surgery status
CPT/HCPCS: 36415; 71045; 80053; 81003; 81015; 81025; 83605; 85025; 87040; 87077; 87081; 87086; 87186; 87430; 87804; 96361; 96365; J0696; J7050

== ENCOUNTER 2019-07-26 20:52 | Emergency (ER) | payer MEDICAID ==
--- NOTE | 2019-07-26 21:55 | RAD ---
Right foot 3 views HISTORY: Right foot pain. FINDINGS: Lisfranc joint alignment is anatomic. Plantar arch is maintained. Mild hallux valgus and bunion deformity. Scattered minimal osteophytosis. No acute fracture, dislocation, or aggressive osseous erosions. IMPRESSION : Mild hallux valgus and bunion deformity. No acute osseous abnormalities are demonstrated.
== END 2019-07-26 22:10 | disposition home or self-care (01) ==
LOC: NAV ERS 20:52
DX: O99.89 Other specified diseases and conditions complicating pregnancy, childbirth and the puerperium (principal); M79.671 Pain in right foot; O99.611 Diseases of the digestive system complicating pregnancy, first trimester; K21.9 Gastro-esophageal reflux disease without esophagitis; O99.341 Other mental disorders complicating pregnancy, first trimester; F41.9 Anxiety disorder, unspecified; O99.281 Endocrine, nutritional and metabolic diseases complicating pregnancy, first trimester; E28.2 Polycystic ovarian syndrome; Z3A.09 9 weeks gestation of pregnancy

== ENCOUNTER 2023-05-10 12:29 | Emergency (ER) | payer BC, MEDICAID ==
[2023-05-10] MEDS ORDERED: Cephalexin 250 MG CAP ONE (12:47)
== END 2023-05-10 12:50 | disposition home or self-care (01) ==
LOC: NAV ERS 12:29
DX: L03.319 Cellulitis of trunk, unspecified (principal)
CPT/HCPCS: 99282

== ENCOUNTER 2023-10-07 22:44 | Emergency (ER) | payer BC ==
[2023-10-07] MEDS ORDERED: Lidocaine 1% (PF) 30 ML VIAL ONE (23:00)
[2023-10-07] MEDS ORDERED: cefTRIAXone (ROCEPHIN) 1 GM VIAL ONE (23:10)
== END 2023-10-07 23:34 | disposition home or self-care (01) ==
LOC: NAV ERS 22:44
DX: K04.7 Periapical abscess without sinus (principal)
CPT/HCPCS: 41800; 96372; 99282; J0696; J2001